=== PATIENT | male | born 1980 ===

== ENCOUNTER 2021-06-04 12:09 | Emergency (ER) | payer OTHER ==
--- NOTE | 2021-06-04 14:15 | Emergency Department Report ---
Chief Complaint: Urogenital-Male Stated Complaint: STD CK Time Seen by Provider: 06/04/21 14:13 - HPI History of Present Illness: Patient is a 41-year-old male presents emergency room with complaints of a small amount of penile discharge that began a couple days ago. He states he has some mild irritation upon urination. He reports that his partner was diagnosed with a UTI. He denies any fever, nausea, vomiting, diarrhea, abdominal pain, back pain, pain or swelling in the testicles, urinary retention, hematuria. No past medical history. Allergy to ibuprofen Vitals are stable On exam: Non toxic appearing, no acute distress atraumatic, normocephalic normal appearance of the eyes, EOMI, no periorbital edema or ecchymosis moist mucus membranes No respiratory distress, no accessory muscle use A&O x4, normal gait Patient is presenting for STD check as he has concerns for an STD He denies any fever, nausea, vomiting, diarrhea, abdominal pain, back pain, pain or swelling in the testicles, urinary retention, hematuria. This hospital facility does not treat or test for uncomplicated male STDs Patient given the appropriate resources Discussed strict return precautions with patient Stressed the importance of outpatient follow-up Medical screen examination performed and there is no threat to life or limb at this time - Exam Vital Signs: Vital Signs 06/04/21 06/04/21 12:36 12:38 Temperature 98.1 F Pulse Rate 78 88 Respiratory 16 Rate O2 Sat by Pulse 90 96 Oximetry MSE screening note: Focused history and physical exam performed. Due to findings the following was ordered: ED Disposition for MSE Clinical Impression: Concern about STD in male without diagnosis Disposition: 07 LEFT AWOL/ELOPED Is pt being admited?: No Does the pt Need Aspirin: No Condition: Stable Instructions: Safe Sex Additional Instructions: please follow up with the clinic or health department to have full STD panel. have any partner tested and treated as well. avoid sexual intercourse. return to the emergency room for any new or worsening symptoms. [employer] Address: [address] [place] [id number] Referrals: [facility] [Outside] - 2-3 Days Time of Disposition: 14:13 Print Language: EMIRATI
[2021-06-04 14:30] VITALS: BP 118/80
== END 2021-06-04 14:26 | disposition left against medical advice (07) ==
LOC: ED 12:09
DX: Z20.2 Contact with and (suspected) exposure to infections with a predominantly sexual mode of transmission (principal); Z88.6 Allergy status to analgesic agent
CPT/HCPCS: 99282